=== PATIENT | female | born 1990 | race Caucasian/White ===

== ENCOUNTER 2017-11-15 12:46 | Emergency (ER) | payer SELFPAY ==
[~2017-11-15] VITALS: Ht 160 cm; Wt 72.0 kg
[2017-11-15 12:48] VITALS: BP 120/80
[2017-11-15] MEDS ORDERED: ONDANSETRON ODT 4 MG ONE (13:11)
[2017-11-15] MEDS ORDERED: HYDROmorphone 2 MG/ML, 1ML ONE (13:12)
[2017-11-15] MEDS ORDERED: HYDROmorphone 1 MG/ML, 1ML IM ONE (13:30)
[2017-11-15] MEDS ORDERED: PLEASE ENTER ALLERGIES MC SCH (13:30)
[2017-11-15] MEDS ORDERED: ONDANSETRON ODT 4 MG PO ONE (13:30)
[2017-11-15] MEDS ORDERED: LIDOCAINE 1%, 10ML ONE (14:15)
[2017-11-15] MEDS ORDERED: LIDOCAINE 1%, 20ML INFIL ONE (14:30)
[2017-11-15] MEDS ORDERED: BACITRACIN ZINC OINT 500U/GM, 0.9 GM ONE ×2 (15:13→15:41)
== END 2017-11-15 15:56 | disposition home or self-care (01) ==
LOC: ED 13:45
DX: S52.571A Other intraarticular fracture of lower end of right radius, initial encounter for closed fracture (principal); S51.811A Laceration without foreign body of right forearm, initial encounter; V19.3XXA Pedal cyclist (driver) (passenger) injured in unspecified nontraffic accident, initial encounter; Y93.I9 Activity, other involving external motion; Y99.8 Other external cause status; Y92.89 Other specified places as the place of occurrence of the external cause
CPT/HCPCS: 29105; 71101; 73000; 73030; 73080; 73090; 73590; 96372; 99284; J1170; Q0162